=== PATIENT | female | born 1945 | race Caucasian/White ===

== ENCOUNTER → 2025-01-11 | Outpatient (CLI) | payer MEDICARE ==
--- NOTE | 2025-01-11 13:44 | XR ---
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 Heart normal size. There is hyperinflation. Mi ld interstitial prominence may be chronic. No bienvenido consolidation or pleural effusion. Some mild stra ndy atelectasis of the lower lungs. IMPRESSION: Possible underlying COPD. Suggestion of some strandy basilar atelectasis. Otherwise, no definite acut e process. [facility], Workstation: [email or web address], 01/11/2025 1:42 PM
--- NOTE | 2025-01-11 15:35 | NM ---
EXAMINATION TYPE: NM pul vent and perfuse DATE OF EXAM: 01/11/2025 CLINICAL INDICATION: Female, 79 years old with shortness of breath and history of R79.1 ELEVATED D D KAREN; COMPARISON: Radiograph same day TECHNIQUE: Utilizing inhalation of 52.3 mCi Tc 99m DTPA aerosol and intravenous injection of 5.3 mCi of Tc 99m MAA, ventilation and perfusion images are acquired post injection in multiple projections. FINDINGS: There is mild heterogeneity of ventilation and perfusion throughout the lungs. No mismatched perfusio n defect is identified. IMPRESSION: Low probability for pulmonary embolus. [facility], Workstation: [id number], 01/11/2025 3:33 PM
== END | disposition home or self-care (01) ==
LOC: RADNMMAIN 12:35
PROVIDERS: ATTEND Family Medicine
DX: R06.02 Shortness of breath (principal); R79.1 Abnormal coagulation profile
CPT/HCPCS: 71046; 78582; A9540; A9567